=== PATIENT | male | born 1970 | race American Indian/Alaskan Native ===

== ENCOUNTER 2016-11-24 21:23 | Emergency (ER) | payer SELFPAY ==
[2016-11-24] MEDS ORDERED: ASPIRIN PO ONE (22:35)
[2016-11-24] MEDS ORDERED: NACL 0.9% 1000 ML 1,000 ML IV ONE (22:35)
--- NOTE | 2016-11-24 22:35 | Emergency Department Report ---
ED General Adult HPI - General Stated complaint: WEAKNESS Time Seen by Provider: 11/24/16 22:28 - History of Present Illness Initial comments: This is a 46-year-old gentleman who reports overdosing on cocaine today. He states that he had cocaine last night as well again this morning. When he came to the realized he had overdosed. He states that he has pain in his chest all over his body. He reports long-standing history of cocaine abuse. No vomiting or diarrhea is reported no abdominal pains reported no headache. He has not taken anything for his pain. He denies any specific medical problems that he is aware of. He does not take any medications on a chronic basis - Related Data Home Medications Medication Instructions Recorded Confirmed Last Taken No Known Home Medications [No 11/20/14 11/20/14 Unknown Reported Home Medications] Allergies Allergy/AdvReac Type Severity Reaction Status Date / Time No Known Allergies Allergy Verified 11/20/14 06:26 ED Review of Systems ROS: Stated complaint: WEAKNESS Other details as noted in HPI Comment: All other systems reviewed and negative Constitutional: weakness (generalized). denies: chills, fever Eyes: denies: eye pain, eye discharge, vision change ENT: denies: ear pain, throat pain Respiratory: denies: cough, shortness of breath, wheezing Cardiovascular: chest pain. denies: palpitations Endocrine: no symptoms reported Gastrointestinal: denies: abdominal pain, nausea, diarrhea Genitourinary: denies: urgency, dysuria Musculoskeletal: arthralgia. denies: back pain, joint swelling Skin: denies: rash, lesions Neurological: denies: headache, weakness, paresthesias Psychiatric: denies: anxiety, depression Hematological/Lymphatic: denies: easy bleeding, easy bruising ED Past Medical Hx - Past Medical History Previous Medical History?: No Additional medical history: Cocaine use - Surgical History Past Surgical History?: No Additional Surgical History: L hip ortho "Pins" - Social History Smoking Status: Unknown if ever smoked - Medications Home Medications: Home Medications Medication Instructions Recorded Confirmed Last Taken Type No Known Home Medications [No 11/20/14 11/20/14 Unknown History Reported Home Medications] ED Physical Exam - General General appearance: alert, in no apparent distress - Head Head exam: Present: atraumatic, normocephalic - Eye Eye exam: Present: normal appearance, EOMI. Absent: scleral icterus - ENT ENT exam: Present: normal exam, normal orophraynx, mucous membranes moist - Neck Neck exam: Present: normal inspection, full ROM. Absent: meningismus, lymphadenopathy - Respiratory Respiratory exam: Present: normal lung sounds bilaterally. Absent: respiratory distress, wheezes - Cardiovascular Cardiovascular Exam: Present: regular rate, normal rhythm, other (mild tenderness of the chest wall as well as the shoulder girdle region. No lesions or abrasions or ecchymosis is noted.). Absent: systolic murmur, diastolic murmur, rubs, gallop - GI/Abdominal GI/Abdominal exam: Present: soft, normal bowel sounds. Absent: distended, tenderness - Rectal Rectal exam: Present: deferred - Extremities Exam Extremities exam: Present: normal inspection. Absent: tenderness, pedal edema - Back Exam Back exam: Present: normal inspection, full ROM. Absent: CVA tenderness (R), CVA tenderness (L) - Neurological Exam Neurological exam: Present: alert, oriented X3, other (moving all 4 extremities appropriately. No obvious lesions or abrasions are noted.) - Psychiatric Psychiatric exam: Present: normal affect, normal mood - Skin Skin exam: Present: warm, dry, intact, normal color. Absent: rash ED Course Vital Signs 11/24/16 11/24/16 11/25/16 22:26 22:31 02:05 Temperature 97.7 F 97.7 F 98 F Pulse Rate 86 84 88 Respiratory 18 18 Rate Blood Pressure 122/92 Blood Pressure 122/92 105/79 [Left] O2 Sat by Pulse 96 100 Oximetry - Reevaluation(s) Reevaluation #1: 11/24/16 23:08 ECG at 2300 with normal sinus rhythm at 83 bpm with a normal WA and QRS. No acute ST segment elevation or depression appreciated. Reevaluation #2: 11/25/16 02:16 The patient has been sleeping throughout his evaluation here. He is easily arousable. He still does endorse some mild chest discomfort. Pushing on his chest does reproduce some of his pains. Push L over his body reproduces some of his pains as well. I have repeated enzymes 2. Initial enzyme I would give it a 6 hour test. With the next of the 10 hour. I feel the patient has been adequately observed post cocaine for rule out ACS. I have a very low suspicion of this. The CT does not show acute injury pattern. Patient was strictly cautioned regarding substances of abuse. He does endorse understanding than reckless behavior and dangers that this may cause. Will discharge to home at this time. ED Medical Decision Making - Lab Data Result diagrams: 11/24/16 22:40 11/24/16 22:40 - Radiology Data interpreted by me: negative Critical care attestation.: If time is entered above; I have spent that time in minutes in the direct care of this critically ill patient, excluding procedure time. ED Disposition Clinical Impression: Cocaine overdose Qualifiers: Encounter type: initial encounter Injury intent: accidental or unintentional Qualified Code(s): T40.5X1A - Poisoning by cocaine, accidental (unintentional), initial encounter Chest pain Qualifiers: Chest pain type: unspecified Qualified Code(s): R07.9 - Chest pain, unspecified Disposition: DISCHARGED TO HOME OR SELFCARE Is pt being admited?: No Does the pt Need Aspirin: No Condition: Stable Instructions: Chest Pain (ED) Additional Instructions: Stop using cocaine. It will one-day kill you. It is very harmful to your heart. Take Tylenol as needed for pains. Stay well hydrated. Referrals: PRIMARY CARE, [Primary Care Provider] - 3-5 Days Time of Disposition: 02:18
[2016-11-24 23:21] LABS: BUN/Creatinine Ratio 11.11; Blood Urea Nitrogen 10 mg/dL (9-20); Calcium 8.3 mg/dL (8.4-10.2); Carbon Dioxide 21 mmol/L (22-30); Glucose 79 mg/dL (75-100)
[2016-11-24 23:22] LABS: Alanine Aminotransferase 32 units/L (7-56); Albumin 3.8 g/dL (3.9-5); Albumin/Globulin Ratio 1.1 %; Alkaline Phosphatase 68 units/L (35-129); Anion Gap 22 mmol/L; Bilirubin,Total 0.5 mg/dL (0.1-1.2); Chloride 99.3 mmol/L (98-107); Sodium 138 mmol/L (137-145); Total Protein 7.3 g/dL (6.3-8.2)
[2016-11-24 23:33] LABS: Basophils % (Auto) 0.4 % (0.0-1.8); Eosinophils % (Auto) 0.6 % (0.0-4.3); Hematocrit 37.2 % (35.5-45.6); Hemoglobin 12.8 gm/dl (11.8-15.2); Mean Corpuscular HGB Conc 35 % (32-34); Mean Corpuscular Hemoglobin 33 pg (28-32); Mean Corpuscular Volume 96 fl (84-94); Platelet Count 268 K/mm3 (140-440); Red Blood Count 3.89 M/mm3 (3.65-5.03); Red Cell Distribution Width 12.7 % (13.2-15.2); White Blood Count 4.2 K/mm3 (4.5-11.0)
[2016-11-25 03:11] VITALS: BP 107/55
--- NOTE | 2016-11-25 09:01 | XRay Report ---
PORTABLE CHEST: Chest pain An AP portable view of the chest demonstrates a normal cardiac contour considering the limits of this technique. The lungs are clear with no evidence of infiltrate, fluid or failure. IMPRESSION: Normal portable chest.
== END 2016-11-25 03:12 | disposition home or self-care (01) ==
LOC: ED 21:23
DX: T40.5X1A Poisoning by cocaine, accidental (unintentional), initial encounter (principal); R07.9 Chest pain, unspecified; Y92.89 Other specified places as the place of occurrence of the external cause
CPT/HCPCS: 36415; 71010; 80053; 84484; 85025; 93005; 93010; 96360; 99285; J7030

== ENCOUNTER 2016-12-31 21:20 | Observation (INO) | payer SELFPAY ==
[2016-12-31 22:30] LABS: BUN/Creatinine Ratio 11.11; Blood Urea Nitrogen 10 mg/dL (9-20); Calcium 8.8 mg/dL (8.4-10.2); Carbon Dioxide 22 mmol/L (22-30); Glucose 91 mg/dL (75-100)
[2016-12-31 22:31] LABS: Anion Gap 21 mmol/L; Chloride 100.9 mmol/L (98-107); Potassium 4.1 mmol/L (3.6-5.0); Sodium 140 mmol/L (137-145)
[2016-12-31 22:45] LABS: Hematocrit 40.6 % (35.5-45.6); Hemoglobin 13.3 gm/dl (11.8-15.2); Mean Corpuscular HGB Conc 33 % (32-34); Mean Corpuscular Hemoglobin 32 pg (28-32); Mean Corpuscular Volume 99 fl (84-94); Platelet Count 183 K/mm3 (140-440); Red Blood Count 4.12 M/mm3 (3.65-5.03); Red Cell Distribution Width 12.5 % (13.2-15.2); White Blood Count 3.4 K/mm3 (4.5-11.0)
[2016-12-31 23:15] LABS: Blastocytes % (Manual) 0 %; Eosinophils % (Manual) 0 % (0.0-4.3)
[2016-12-31 23:16] LABS: Diff Status Complete; Platelet Estimate Consistent w Auto; RBC Morphology Normal
[2017-01-01] MEDS ORDERED: TORADOL IV ONE (06:34)
[2017-01-01] MEDS ORDERED: BABY ASPIRIN PO ONE (06:34)
--- NOTE | 2017-01-01 06:38 | Emergency Department Report ---
ED Chest Pain HPI - General Chief Complaint: Chest Pain Stated Complaint: DIZZINESS/CHEST PAIN Time Seen by Provider: 01/01/17 06:12 Source: patient Mode of arrival: Ambulatory Limitations: No Limitations - History of Present Illness Initial Comments: 46-year-old -[place] male who presents to the emergency department with complaint of midsternal nonradiating chest pain has been going on since late last evening and has continued since. He says that it is keeping him from getting any sleep. He denies any shortness of breath. He had some nausea and vomiting and diaphoresis earlier but that has since resolved. He has a history of cocaine abuse but says he last used it about one week ago. He has not taken anything for symptoms prior to presentation. It is currently 7 out of 10 in intensity. There are no known aggravating or alleviating factors. He denies any other past medical history. He does not have a primary care doctor. No recent travel or sick contacts at home. He denies tobacco abuse or any current alcohol use. Severity scale (0 -10): 6 - Related Data Home Medications Medication Instructions Recorded Confirmed Last Taken No Known Home Medications [No 11/20/14 11/20/14 Unknown Reported Home Medications] Allergies Allergy/AdvReac Type Severity Reaction Status Date / Time No Known Allergies Allergy Verified 11/20/14 06:26 MARIE score - Marie Score Age > 65: (0) No Aspirin use within the Past 7 Days: (0) No 3 or more CAD Risk Factors: (0) No 2 or more Angina events in past 24 hrs: (1) Yes Known CAD with more than 50% Stenosis: (0) No Elevated Cardiac Markers: (0) No ST Deviation Greater than 0.5mm: (0) No MARIE Score: 1 ED Review of Systems ROS: Stated complaint: DIZZINESS/CHEST PAIN Other details as noted in HPI Comment: All other systems reviewed and negative Constitutional: denies: chills, fever Eyes: denies: eye pain, eye discharge, vision change ENT: denies: ear pain, throat pain Respiratory: denies: cough, shortness of breath, wheezing Cardiovascular: chest pain. denies: palpitations Gastrointestinal: nausea, vomiting Genitourinary: denies: urgency, dysuria Musculoskeletal: denies: back pain, joint swelling, arthralgia Skin: denies: rash, lesions Neurological: denies: headache, weakness, paresthesias ED Past Medical Hx - Past Medical History Previous Medical History?: Yes Additional medical history: Cocaine use - Surgical History Past Surgical History?: Yes Additional Surgical History: L hip ortho "Pins" - Social History Smoking Status: Never Smoker Substance Use Type: Alcohol, Cocaine, Marijuana - Medications Home Medications: Home Medications Medication Instructions Recorded Confirmed Last Taken Type No Known Home Medications [No 11/20/14 11/20/14 Unknown History Reported Home Medications] ED Physical Exam - General Limitations: No Limitations - Other Other exam information: GENERAL: The patient is well-developed well-nourished. HEENT: Normocephalic. Atraumatic. Extraocular motions are intact. Patient has moist mucous membranes. Pupils equal reactive to light bilaterally. NECK: Supple. Trachea is midline. CHEST/LUNGS: Clear to auscultation. There is no respiratory distress noted. Midsternal chest pain is reproducible to palpation of the chest wall. HEART/CARDIOVASCULAR: Regular. There is no tachycardia. There is no gallop rub or murmur. ABDOMEN: Abdomen is soft, nontender. Patient has normal bowel sounds. There is no abdominal distention. SKIN: Skin is warm and dry. NEURO: The patient is awake, alert, and oriented. The patient is cooperative. The patient has no focal neurologic deficits. The patient has normal speech. MUSCULOSKELETAL: There is no tenderness or deformity. There is no limitation range of motion. There is no evidence of acute injury. ED Course Vital Signs 12/31/16 01/01/17 01/01/17 21:47 02:01 06:33 Temperature 98.1 F 97.6 F Pulse Rate 87 89 77 Respiratory 18 18 16 Rate Blood Pressure 179/88 124/90 Blood Pressure 138/94 [Left] O2 Sat by Pulse 100 99 99 Oximetry O2 Sat by Pulse Oximetry [ Digit-Finger] 01/01/17 06:40 Temperature Pulse Rate Respiratory Rate Blood Pressure Blood Pressure [Left] O2 Sat by Pulse Oximetry O2 Sat by Pulse 100 Oximetry [ Digit-Finger] - Pulse Oximetry Interpretation Digit-Finger Initial Pulse Oximetry Readin O2 Sat by Pulse Oximetry: 100 Actions Taken: none ED Medical Decision Making - Lab Data Result diagrams: 12/31/16 21:59 12/31/16 21:59 - EKG Data -: EKG Interpreted by [place] EKG shows normal: sinus rhythm, axis, intervals, QRS complexes, ST-T waves Rate: normal - EKG Data When compared to previous EKG there are: no significant change Interpretation: unchanged when compared t (11/24/16) - Radiology Data Radiology results: image reviewed interpreted by me: Chest x-ray did not show any acute process. Heart is normal shape and size. No effusions. No pneumothorax. No signs of pneumonia seen. - Medical Decision Making 46-year-old male presents to emergency department with midsternal chest pain since late last night. There is at least a component of costochondritis as some of the pain is reproducible to palpation. However the patient has a history of cocaine-induced chest pain and this time he says he has not done any cocaine for over a week but still continues to have chest discomfort. His EKG does not show any signs of ST elevation ND or dysrhythmia. Chest x-ray does not show any acute process. He has had negative troponins 2 this far. However this is the second visit in the past 2 months for chest pain and he has not had a full cardiac evaluation so my plan is for admission for serial troponins, continued monitoring and possible cardio consultation versus stress test. Patient has been accepted by the service of Dr. Lu and the information has been obtained by the nurse practitioner. - Differential Diagnosis ND, Costochondritis, Pneumonia, GERD Critical Care Time: No Critical care attestation.: If time is entered above; I have spent that time in minutes in the direct care of this critically ill patient, excluding procedure time. ED Disposition Clinical Impression: Chest pain Qualifiers: Chest pain type: unspecified Qualified Code(s): R07.9 - Chest pain, unspecified Disposition: OP ADMITTED IP TO THIS HOSP Is pt being admited?: Yes Condition: Stable Instructions: Chest Pain (ED) Referrals: PRIMARY CARE, [Primary Care Provider] - 3-5 Days Time of Disposition: 07:29
--- NOTE | 2017-01-01 07:34 | Admit Criteria Form ---
Admission Criteria Documentation: CARDIOLOGY GRG Clinical Indications for Admission to Inpatient Care ( Place 'X' for any and all applicable criteria): Hospital admission is needed for appropriate care of the patient because of ANY ONE of the following (1): [ ] I. Hemodynamic instability as indicated by ALL of the following (1)(2)(3) (4)(5) [ ]a) Vital signs or other findings not as expected for chronic patient condition or baseline [ ]b) Instability indicated by ANY ONE of the following: [ ]i) Hypotension [ ]ii) Symptomatic Tachycardia unresponsive to treatment ( e.g., analgesia, fluids, sedation as indicated) [ ]iii) Inadequate perfusion indicated by ANY ONE of the following: [ ] 1) Lactic acidosis (> 2 mmol/L) [ ] 2) New abnormal capillary refill (> 3 seconds) [ ] 3) Reduced urine output [ ] 4) New altered mental status [ ]iv) Orthostatic vital sign changes unresponsive to treatment (e.g., fluids) [ ]v) IV inotropic or vasopressor medication required to maintain adequate blood pressure or perfusion [ ] II. Severe heart failure as indicated by ANY ONE of the following(17)(18) [ ]a) Respiratory distress [ ]b) Hypotension [ ]c) Anasarca (refractory to outpatient therapy) [ ]d) Cardiac arrhythmias of immediate concern [ ]e) Myocardial ischemia [ ] III. Cardiac arrhythmias or findings of immediate concern indicated by ANY ONE of the following (19)(20): [ ] a) Heart rhythms that are inherently dangerous or unstable indicated by ANY ONE of the following (21)(22)(23): [ ] i) Resuscitated ventricular fibrillation or cardiac arrest [ ] ii) Ventricular escape rhythm [ ] iii) Sustained ventricular tachycardia (30 seconds or more of ventricular rhythm at greater than 100 beats per minute) [ ] iv) Nonsustained ventricular tachycardia and ANY ONE of the following: [ ] 1) Suspected cardiac ischemia as cause or consequence of ventricular tachycardia [ ] 2) In setting of acute myocarditis [ ] b) Unstable cardiac conduction defects indicated by ANY ONE of the following(23)(24)(25) [ ] i) Type II second-degree atrioventricular block [ ]ii) Third-degree atrioventricular block [ ]iii) New-onset left bundle branch block with suspected myocardial ischemia [ ]c) Any heart rhythm and ANY ONE of the following (21)(22)(26)(27) (28) [ ] i) Continuous long-term ECG monitoring needed (e.g., initiation of drug requiring monitoring for more than 24 hours) [ ] ii) Patient has automatic implanted cardioverter defibrillator that is repeatedly firing, malfunctioning, or in need of immediate adjustment of settings beyond the scope of ambulatory or observation care [ ]d) Heart rhythms of concern due to ANY ONE of the following: [ ] i) Hypotension [ ] ii) Respiratory distress [ ] iii) Association with other significant symptoms (e.g., bradycardia with syncope or ongoing dizziness, supraventricular tachycardia with chest pain (14)(15)(17) [ ] IV. Monitoring for cardiac contusion beyond the scope of observation care needed [A](30)(31)(32) [ ] V. Surgical or device complication (e.g., valve replacement complication , pacemaker dysfunction) (35)(41)(44)(45)(46) [ ] . Inpatient palliative care needed. [B](49) Also use Inpatient Palliative Care Criteria [ ] VII. Nonbacterial thrombotic (marantic) endocarditis (36)(43)(47)(48) [X ] VIII. Cardiology condition, symptom, or finding for which emergency and observation care has failed or are not considered appropriate. [ ] IX. Acute valvular disease requiring inpatient as indicated by ANY ONE of the following (41) [ ]a) Acute valvular regurgitation (42) [ ]b) Noninfectious valvulitis (43) [ ]c) Obstructive valve thrombosis [ ]d) Paravalvular leak [ ]e) Other significant valvular disorder remaining after emergency or observation level of care (as appropriate) [ ]X. Pericardial disease requiring inpatient treatment as indicated by ANY ONE of the following (33)(34)(35)(36)(37) [ ]a) Suspected tamponade (38)(39)(40) [ ]b) Hemopericardium [ ]c) Other significant pericardial disorder remaining after emergency or observation level of care (as appropriate) [ ] XI. Cardiac ischemia beyond scope of emergency and observation care. [ ] XII. Hypertension requiring inpatient treatment as indicated by ANY ONE of the following (6)(7)(8) [ ]a) SBP greater than 220 mm Hg or DBP greater than 120 mmHg despite treatment [ ]b) SBP greater than 140 mm Hg or DBP greater than 100 mm Hg with evidence of acute end organ damage as indicated by ANY ONE of the following [ ] i) Altered mental status [ ] ii) Acute renal failure as indicated by new onset of ANY ONE of the following (9)(10)(11)(12)(13) [ ]1) 3-fold rise in serum creatinine from baseline [ ]2) Serum creatinine greater than 4 mg/dL ( 354 micromoles/L) with acute rise greater than 0.5 mg/dL (44.2 micromoles/L) [ ]3) Reduction of more than 75% in estimated glomerular filtration rate from baseline [ ]4) Estimated glomerular filtration rate less than 35 mL/min/1.73m2 (0.59 mL/sec/1.73m2) in child up to 18 years of age [ ]5) Cessation of urine output indicated by ALL of the following [ ]A. Adequate volume status [ ]B. Inadequate urine output as indicated by ANY ONE of the following [ ]a. Urine output less than 0.3 mL/kg/hr for 24 hours [ ]b. Anuria (urine output less than 0.1 mL/kg/hr) for 12 hours [ ] iii) Aortic dissection [ ] iv) Myocardial Ischemia [ ] v) Left ventricular heart failure [ ]vi) Retinal Hemorrhage [ ]vii) Other significant finding [ ]c) Hypertension in child requiring inpatient treatment as indicated by ALL of the following(14)(15)(16) [ ] i) Outpatient treatment not effective, not available, or not appropriate [ ]ii) SBP or DBP greater than 95th percentile for age [ ]iii) Evidence of acute end organ damage as indicated by ANY ONE of the following [ ]1) Altered mental status [ ]2) Acute renal failure as indicated by new onset of ANY ONE of the following(9)(10)(11)(12)(13) [ ]A. 3-fold rise in serum creatinine from baseline [ ]B. Serum creatinine greater than 4 mg/dL (354 micromoles/L) with acute rise greater than 0.5 mg/dL (44.2 micromoles/L) [ ]C. Reduction of more than 75% in estimated glomerular filtration rate from baseline [ ]D. Estimated glomerular filtration rate less than 35 mL/min/1.73m2 (0.59 mL/sec/1.73m2) in child up to 18 years of age [ ]E. Cessation of urine output indicated by ALL of the following [ ]a. Adequate volume status [ ]b. Inadequate urine output as indicated by ANY ONE of the following [ ]i) Urine output less than 0.3 mL/kg/hr for 24 hours [ ]ii) Anuria ( urine output less than 0.1 mL/kg/hr) for 12 hours [ ]3) Severe headache [ ]4) Visual disturbance [ ]5) Retinal hemorrhage [ ]6) Other significant finding [ ]XIII. Complications of transplanted heart indicated by ANY ONE of the following(61): [ ]a) Acute graft rejection requiring inpatient management (eg, intravenous immunosuppression)(62)(63) [ ]b) Acute graft heart failure indicated by ANY ONE of the following(64): [ ]i) Hemodynamic instability [ ]ii) Cardiac arrhythmias of immediate concern [ ]iii) Pulmonary edema that is very severe (eg, mechanical ventilation needed, imminent or likely, need for 100% oxygen to keep oxygen saturation above 90%) [ ]iv) Pulmonary edema that is persistent as indicated by ALL of the following: [ ]1) New need for oxygen therapy to keep oxygen saturation above 90% (or increased FiO2 need from baseline) [ ]2) Has not improved sufficiently with emergency department or observation care IV diuretics or other heart failure treatments[E] [ ]v) Altered mental status that is severe or persistent [ ]vi) Increased creatinine (new on laboratory test) with reduction of more than 50% in estimated glomerular filtration rate from baseline [ ]vii) Progressively (ongoing) rising creatinine (known from past laboratory test) with reduction of more than 25% in estimated glomerular filtration rate from baseline [ ]viii) Acute renal failure [ ]ix) Acute peripheral ischemia (eg, examination shows pulseless, cool, mottled, or cyanotic extremity) [ ]x) Pulmonary artery catheter monitoring needed [ ]xi) Other sign or symptom of heart failure requiring inpatient treatment (ie, too severe or not responsive to outpatient and observation care treatment) [ ]c) Infection requiring inpatient management (eg, Hemodynamic instability, need for intravenous antimicrobial treatment)(66)(67)(68)(69)(70) [ ]d) Cardiac allograft vasculopathy requiring inpatient management ( eg evidence of cardiac ischemia)(71) [ ]e) Other complication of transplanted heart (eg, stroke, severe pulmonary hypertension, severe valvular dysfunction) requiring inpatient management(72) The original [facility] [employer] content created by [facility] has been revised. The portions of the content which have been revised are identified through the use of italic text or in bold, and [facility] has neither reviewed nor approved the modified material. All other unmodified content is copyright [facility] [employer]. Please see references footnoted in the original [facility] [employer] edition 2016 Admission Criteria Met: Yes
--- NOTE | 2017-01-01 08:10 | XRay Report ---
AP CHEST : 01/01/17 CLINICAL: Chest pain. COMPARISON:11/24/16 FINDINGS: Normal heart and pulmonary vessels. The lungs are normally expanded and clear. The bones and soft tissues are unremarkable. IMPRESSION: Normal chest.
--- NOTE | 2017-01-01 08:17 | Consultation ---
Medications and Allergies Allergies Allergy/AdvReac Type Severity Reaction Status Date / Time No Known Allergies Allergy Verified 11/20/14 06:26 Home Medications Medication Instructions Recorded Confirmed Last Taken Type No Known Home Medications [No 11/20/14 11/20/14 Unknown History Reported Home Medications] Exam - Constitutional Vitals: Temp Pulse Resp BP Pulse Ox 97.6 F 77 16 138/94 100 01/01/17 02:01 01/01/17 06:33 01/01/17 06:33 01/01/17 06:33 01/01/17 07:29 Results - Labs CBC & Chem 7: 12/31/16 21:59 12/31/16 21:59 Labs: Abnormal lab results 12/31/16 Range/Units 21:59 WBC 3.4 L (4.5-11.0) K/mm3 MCV 99 H (84-94) fl RDW 12.5 L (13.2-15.2) % Seg Neuts % (Manual) 39.0 L (40.0-70.0) % Lymphocytes % (Manual) 46.0 H (13.4-35.0) % Monocytes % (Manual) 14.0 H (0.0-7.3) % Seg Neutrophils # Man 1.3 L (1.8-7.7) K/mm3
--- NOTE | 2017-01-01 08:28 | History and Physical Report ---
History of Present Illness Date of examination: 01/01/17 Date of admission: 01/01/17 Chief complaint: 01/01/17 History of present illness: 46-year-old male presented to the ED with chest pain. Patient verbalized chest pain started yesterday, 12/31/16, while he was resting. Pt complain of localized chest pain 7 out of 10. Patient denies fever, chills, nausea, vomiting. Patient also denies smoking, hypertension, diabetes and CAD. Patient verbalized cocaine use and left hip surgery a long time ago. Past History Past Medical History: No medical history, other (Chest pain) Past Surgical History: Other (Left Hip Surgery (year unknown)) Social history: single, Lives alone, alcohol abuse ([employer]), other ( Cocaine Abuse) Family history: no significant family history (Pt denies family Hx of heart disease), other Medications and Allergies Allergies Allergy/AdvReac Type Severity Reaction Status Date / Time No Known Allergies Allergy Verified 11/20/14 06:26 Home Medications Medication Instructions Recorded Confirmed Last Taken Type Aspirin EC [Aspirin Enteric Coated 81 mg PO QDAY #30 tablet. 01/01/17 Unknown Rx TAB] Review of Systems Constitutional: fatigue, no fever, no chills Ears, nose, mouth and throat: deferred Cardiovascular: chest pain Respiratory: no cough Gastrointestinal: no nausea, no vomiting, no diarrhea, no constipation Genitourinary Male: no dysuria Rectal: no pain Musculoskeletal: no neck stiffness, no neck pain, no arm numbness/tingling, no leg numbness/tingling Integumentary: no rash, no wounds Neurological: no head injury, no syncope, no headaches Psychiatric: no anxiety Endocrine: no high blood sugars, no low blood sugars Exam - Constitutional Vitals: Temp Pulse Resp BP Pulse Ox 97.6 F 77 16 138/94 100 01/01/17 02:01 01/01/17 06:33 01/01/17 06:33 01/01/17 06:33 01/01/17 07:29 General appearance: Present: no acute distress, other (Sleepy but easily arousable) - EENT Eyes: Present: PERRL ENT: hearing intact - Neck Neck: Present: normal ROM - Respiratory Respiratory effort: normal - Cardiovascular Heart Sounds: Present: S1 & S2. Absent: systolic murmur, diastolic murmur - Extremities Extremities: No edema, Full ROM Peripheral Pulses: within normal limits - Abdominal General gastrointestinal: Present: soft, non-tender, normal bowel sounds Male genitourinary: Present: deferred - Rectal Rectal Exam: deferred - Integumentary Integumentary: Present: warm, dry - Musculoskeletal Musculoskeletal: strength equal bilaterally - Psychiatric Psychiatric: intact judgment & insight - Neurologic Neurologic: moves all extremities - Allied Health Allied health notes reviewed: nursing Results - Labs CBC & Chem 7: 12/31/16 21:59 12/31/16 21:59 Labs: Laboratory Last Values WBC 3.4 K/mm3 (4.5-11.0) L 12/31/16 21:59 RBC 4.12 M/mm3 (3.65-5.03) 12/31/16 21:59 Hgb 13.3 gm/dl (11.8-15.2) 12/31/16 21:59 Hct 40.6 % (35.5-45.6) 12/31/16 21:59 MCV 99 fl (84-94) H 12/31/16 21:59 MCH 32 pg (28-32) 12/31/16 21:59 MCHC 33 % (32-34) 12/31/16 21:59 RDW 12.5 % (13.2-15.2) L 12/31/16 21:59 Plt Count 183 K/mm3 (140-440) 12/31/16 21:59 Add Manual Diff Complete 12/31/16 21:59 Total Counted 100 12/31/16 21:59 Seg Neutrophils % Leasing Consultant 12/31/16 21:59 Seg Neuts % (Manual) 39.0 % (40.0-70.0) L 12/31/16 21:59 Band Neutrophils % 0 % 12/31/16 21:59 Lymphocytes % (Manual) 46.0 % (13.4-35.0) H 12/31/16 21:59 Reactive Lymphs % (Man) 0 % 12/31/16 21:59 Monocytes % (Manual) 14.0 % (0.0-7.3) H 12/31/16 21:59 Eosinophils % (Manual) 0 % (0.0-4.3) 12/31/16 21:59 Basophils % (Manual) 1.0 % (0.0-1.8) 12/31/16 21:59 Metamyelocytes % 0 % 12/31/16 21:59 Myelocytes % 0 % 12/31/16 21:59 Promyelocytes % 0 % 12/31/16 21:59 Blast Cells % 0 % 12/31/16 21:59 Nucleated RBC % Not Reportable 12/31/16 21:59 Seg Neutrophils # Man 1.3 K/mm3 (1.8-7.7) L 12/31/16 21:59 Band Neutrophils # 0.0 K/mm3 12/31/16 21:59 Lymphocytes # (Manual) 1.6 K/mm3 (1.2-5.4) 12/31/16 21:59 Abs React Lymphs (Man) 0.0 K/mm3 12/31/16 21:59 Monocytes # (Manual) 0.5 K/mm3 (0.0-0.8) 12/31/16 21:59 Eosinophils # (Manual) 0.0 K/mm3 (0.0-0.4) 12/31/16 21:59 Basophils # (Manual) 0.0 K/mm3 (0.0-0.1) 12/31/16 21:59 Metamyelocytes # 0.0 K/mm3 12/31/16 21:59 Myelocytes # 0.0 K/mm3 12/31/16 21:59 Promyelocytes # 0.0 K/mm3 12/31/16 21:59 Blast Cells # 0.0 K/mm3 12/31/16 21:59 WBC Morphology Not Reportable 12/31/16 21:59 Hypersegmented Neuts Not Reportable 12/31/16 21:59 Hyposegmented Neuts Not Reportable 12/31/16 21:59 Hypogranular Neuts Not Reportable 12/31/16 21:59 Smudge Cells Not Reportable 12/31/16 21:59 Toxic Granulation Not Reportable 12/31/16 21:59 Toxic Vacuolation Not Reportable 12/31/16 21:59 Dohle Bodies Not Reportable 12/31/16 21:59 Pelger-Huet Anomaly Not Reportable 12/31/16 21:59 Rere Rods Not Reportable 12/31/16 21:59 Platelet Estimate Consistent w auto 12/31/16 21:59 Clumped Platelets Not Reportable 12/31/16 21:59 Plt Clumps, EDTA Not Reportable 12/31/16 21:59 Large Platelets Not Reportable 12/31/16 21:59 Giant Platelets Not Reportable 12/31/16 21:59 Platelet Satelliting Not Reportable 12/31/16 21:59 Plt Morphology Comment Not Reportable 12/31/16 21:59 RBC Morphology Normal 12/31/16 21:59 Dimorphic RBCs Not Reportable 12/31/16 21:59 Polychromasia Not Reportable 12/31/16 21:59 Hypochromasia Not Reportable 12/31/16 21:59 Poikilocytosis Not Reportable 12/31/16 21:59 Anisocytosis Not Reportable 12/31/16 21:59 Microcytosis Not Reportable 12/31/16 21:59 Macrocytosis Not Reportable 12/31/16 21:59 Spherocytes Not Reportable 12/31/16 21:59 Pappenheimer Bodies Not Reportable 12/31/16 21:59 Sickle Cells Not Reportable 12/31/16 21:59 Target Cells Not Reportable 12/31/16 21:59 Tear Drop Cells Not Reportable 12/31/16 21:59 Ovalocytes Not Reportable 12/31/16 21:59 Helmet Cells Not Reportable 12/31/16 21:59 [employer] Bodies Not Reportable 12/31/16 21:59 Draper Rings Not Reportable 12/31/16 21:59 Mery Cells Not Reportable 12/31/16 21:59 Bite Cells Not Reportable 12/31/16 21:59 Crenated Cell Not Reportable 12/31/16 21:59 Elliptocytes Not Reportable 12/31/16 21:59 Acanthocytes (Spur) Not Reportable 12/31/16 21:59 Rouleaux Not Reportable 12/31/16 21:59 Hemoglobin C Crystals Not Reportable 12/31/16 21:59 Schistocytes Not Reportable 12/31/16 21:59 Malaria parasites Not Reportable 12/31/16 21:59 Gopi Bodies Not Reportable 12/31/16 21:59 Hem Pathologist Commnt No 12/31/16 21:59 Sodium 140 mmol/L (137-145) 12/31/16 21:59 Potassium 4.1 mmol/L (3.6-5.0) 12/31/16 21:59 Chloride 100.9 mmol/L (98-107) 12/31/16 21:59 Carbon Dioxide 22 mmol/L (22-30) 12/31/16 21:59 Anion Gap 21 mmol/L 12/31/16 21:59 BUN 10 mg/dL (9-20) 12/31/16 21:59 Creatinine 0.9 mg/dL (0.8-1.5) 12/31/16 21:59 Estimated GFR > 60 ml/min 12/31/16 21:59 BUN/Creatinine Ratio 11.11 % 12/31/16 21:59 Glucose 91 mg/dL (75-100) 12/31/16 21:59 Calcium 8.8 mg/dL (8.4-10.2) 12/31/16 21:59 Troponin T < 0.010 ng/mL (0.00-0.029) 01/01/17 06:09 - Imaging and Cardiology EKG: report reviewed (EKG NSR, HR 80) Assessment and Plan Assessment and plan: 46-year-old male presented to the ED with chest pain. Patient verbalized chest pain started yesterday, 12/31/16, while he was resting. Pt complain of localized chest pain 7 out of 10. Patient denies fever, chills, nausea, vomiting. Patient also denies smoking, hypertension, diabetes and CAD. Patient verbalized cocaine use and left hip surgery a long time ago. On exam, patient alert and oriented 3, sleepy but easily arousable, S1S2 noted, no murmurs noted and B/L clear lung sounds. Problem: Chest pain - Pending Stress Test Follow up: Troponin series negative, EKG normal sinus rhythm, patient refused stress test and was advised to follow up with PCP. Patient was counseled on cocaine abuse. Patient's chest pain was most likely due to costochondritis and recommended to take tylenol over the counter. Advance Directives: No (Full Code) VTE prophylaxis?: Mechanical Contraindication Mechanical VTE Prophylaxis: Treatment Not Indicated Plan of care discussed with patient/family: Yes
[2017-01-01 09:03] LABS: Urine Drugs of Abuse Note Disclamer
[2017-01-01 09:15] LABS: Bilirubin,Urine NEG (Negative); Blood,Urine NEG (Negative); Ketones,Urine NEG (Negative); Leukocyte Esterase,Urine NEG (Negative); Mucus,Urine FEW /HPF; Nitrite,Urine NEG (Negative); Protein,Urine <15 mg/dL mg/dL (Negative); Urobilinogen,Urine < 2.0 mg/dL (<2.0); WBC,Urine < 1.0 /HPF (0.0-6.0)
[2017-01-01 11:09] VITALS: BP 132/88
== END 2017-01-01 11:45 | disposition home or self-care (01) ==
LOC: ED 21:20 → 4A 01-01 08:17
PROVIDERS: ADMIT Internal Medicine; ATTEND Internal Medicine
DX: R07.9 Chest pain, unspecified (principal); Z98.890 Other specified postprocedural states
CPT/HCPCS: 36415; 71010; 80048; 80307; 81001; 84484; 85007; 85025; 93005; 93010; 96374; 99285; G0378; J1885

== ENCOUNTER 2017-08-09 00:33 | Emergency (ER) | payer OTHER ==
[2017-08-09 02:19] VITALS: BP 112/78
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
[2017-08-09] MEDS ORDERED: MOTRIN PO ONE (09:22)
== END 2017-08-09 10:23 | disposition home or self-care (01) ==
LOC: ED 00:33
DX: M79.632 Pain in left forearm (principal); M79.642 Pain in left hand; F12.10 Cannabis abuse, uncomplicated; Z79.82 Long term (current) use of aspirin; W05.1XXA Fall from non-moving nonmotorized scooter, initial encounter; Y93.89 Activity, other specified; Y99.8 Other external cause status; Y92.488 Other paved roadways as the place of occurrence of the external cause
CPT/HCPCS: 99283

== ENCOUNTER 2018-10-04 20:12 | Emergency (ER) | payer SELFPAY ==
--- NOTE | 2018-10-04 20:21 | Emergency Department Report ---
HPI - General Time Seen by Provider: 10/04/18 20:17 - HPI HPI: 48-year-old -[place] male presents to the emergency department via EMS with complaint of alcohol intoxication and generalized body pains. More specifically, the patient complains of some abdominal pain and back pain around "my kidneys." He says that he is urinating incessantly. Patient does have a history of alcohol abuse and says that he was drinking all day today. He allegedly has a past medical history of hypertension, diabetes and some history of kidney dysfunction. He has not dialysis dependent. He does not have a primary care physician. He did not take anything for his symptoms prior to pr esentation. ED Past Medical Hx - Past Medical History Additional medical history: Cocaine use - Surgical History Additional Surgical History: L hip ortho "Pins" - Social History Smoking Status: Never Smoker Substance Use Type: Alcohol - Medications Home Medications: Home Medications Medication Instructions Recorded Confirmed Last Taken Type RX: Aspirin EC [Aspirin Enteric 81 mg PO QDAY #30 tablet. 01/01/17 Unknown Rx Coated TAB] Ibuprofen [Motrin] 600 mg PO Q8H PRN #30 tablet 08/09/17 Unknown Rx ED Review of Systems ROS: Stated complaint: ETOH Other details as noted in HPI Comment: All other systems reviewed and negative Constitutional: denies: chills, fever Eyes: denies: eye pain, vision change ENT: denies: ear pain, throat pain Respiratory: denies: cough, shortness of breath Cardiovascular: denies: chest pain, palpitations Gastrointestinal: abdominal pain. denies: vomiting Genitourinary: urgency, frequency Musculoskeletal: back pain, myalgia Skin: denies: rash, change in color Neurological: denies: headache, numbness Physical Exam - Physical Exam Physical Exam: GENERAL: The patient is well-developed well-nourished. HEENT: Normocephalic. Atraumatic. Patient has moist mucous membranes. EYES: Extraocular motions are intact. Pupils are equal and reactive to light bilaterally. NECK: Supple. Trachea is midline. CHEST/LUNGS: Clear to auscultation. There is no respiratory distress noted. HEART/CARDIOVASCULAR: Regular. There is no tachycardia. There is no obvious murmur. ABDOMEN: Abdomen is soft, nontender. Patient has normal bowel sounds. There is no abdominal distention. SKIN: Skin is warm and dry. NEURO: The patient is awake, alert, and oriented but he appears intoxicated. The patient has no focal neurologic deficits. MUSCULOSKELETAL: There is no tenderness or deformity. There is no limitation range of motion. There is no evidence of acute injury. Muscle strength 5 out of 5 upper and lower extremities bilaterally. BACK: No midline thoracic or lumbar tenderness to palpation, step-off or deformity. ED Medical Decision Making - Lab Data Result diagrams: 10/04/18 20:24 10/04/18 20:24 - Medical Decision Making This patient presented to the emergency department with alcohol intoxication with a blood alcohol level of 0.38. He had some complaints of generalized abdominal pain and some back pain but he also equated this history of alcohol abuse. Patient was given IV resuscitation and a banana bag. Abdominal x-ray did not show any acute process. His back pain was atraumatic and was both midline and bilateral paraspinal without any step-off or deformity. I did not feel that any imaging was necessary. He denied any problems with bowel or bladder, numbness or paresthesias or any neurological deficits and did not appear to be high suspicion for any of the emergent back condition such as cauda equina, epidural abscess or cord compression syndrome. Vital signs stable throughout his ED course. The patient was watched throughout my entire shift and then was signed out to my colleague. In reviewing the records, the blood alcohol level came down to about 0.11. At this time the patient was awake, alert, stable and sober appearing and was discharged home. The patient walked out on his own accord. He was given discharge instructions that include recommendations to stay away from any further alcohol abuse. He will return to the ER with any worsening of symptoms or any acute distress. Critical Care Time: No Critical care attestation.: If time is entered above; I have spent that time in minutes in the direct care of this critically ill patient, excluding procedure time. ED Disposition Clinical Impression: Alcohol abuse Alcohol intoxication Qualifiers: Complication of substance-induced condition: uncomplicated Qualified Code(s): F10.920 - Alcohol use, unspecified with intoxication, uncomplicated Disposition: DC-01 TO HOME OR SELFCARE Is pt being admited?: No Condition: Stable Instructions: Alcohol Intoxication (ED), Abuse of Alcohol (ED) Additional Instructions: Please follow up with a primary care physician in the next few days. Return to the emergency Department with any worsening of your symptoms or any acute distress. Please try and avoid any further alcohol abuse. Referrals: [facility] [Outside] - 2-3 Days [facility] [Outside] - 2-3 Days Time of Disposition: 06:29
[2018-10-04 20:55] LABS: Basophils % (Auto) 0.8 % (0.0-1.8); Eosinophils % (Auto) 0.1 % (0.0-4.3); Hematocrit 42.2 % (35.5-45.6); Hemoglobin 14.3 gm/dl (11.8-15.2); Lymphocytes # (Auto) 1.9 K/mm3 (1.2-5.4); Lymphocytes % (Auto) 48.9 % (13.4-35.0); Mean Corpuscular HGB Conc 34 % (32-34); Mean Corpuscular Volume 98 fl (84-94); Monocytes # (Auto) 0.4 K/mm3 (0.0-0.8); Monocytes % (Auto) 9.6 % (0.0-7.3); Platelet Count 184 K/mm3 (140-440); Red Blood Count 4.31 M/mm3 (3.65-5.03); Red Cell Distribution Width 12.4 % (13.2-15.2)
[2018-10-04] MEDS ORDERED: VITAMIN B-1 PO ONE (21:00)
[2018-10-04 21:11] LABS: BUN/Creatinine Ratio 8; Blood Urea Nitrogen 6 mg/dL (9-20); Calcium 8.5 mg/dL (8.4-10.2); Hemolysis Index 11
[2018-10-04] MEDS ORDERED: FOLVITE 1 MG, INFUVITE 10 ML in NACL 0.9% 1000 ML 1,000 ML IV ONE (21:19)
[2018-10-04] MEDS ORDERED: NACL 0.9% 1000 ML 1,000 ML IV ONE (21:35)
--- NOTE | 2018-10-04 22:26 | XRay Report ---
FINAL REPORT PROCEDURE: Abdomen. TECHNIQUE: Portable supine and upright views. HISTORY: Abdominal pain. COMPARISON: No prior studies are available for comparison. FINDINGS: The bowel gas pattern is normal. There are no signs of obstruction. The soft tissues are unremarkable . There is internal fixation hardware through the left hip joint. IMPRESSION: No evidence of acute abdominal disease.
[2018-10-04 23:21] LABS: Bilirubin,Urine NEG (Negative); Blood,Urine NEG (Negative); Color,Urine Straw (Yellow); Protein,Urine <15 mg/dL mg/dL (Negative); RBC,Urine < 1.0 /HPF (0.0-6.0); Urobilinogen,Urine < 2.0 mg/dL (<2.0); WBC,Urine < 1.0 /HPF (0.0-6.0)
[2018-10-04 23:33] LABS: Amphetamine Screen,Urine PRESUMPTIVE NEGATIVE; Benzodiazepines Screen,Urine PRESUMPTIVE NEGATIVE; Cannabinoid Screen,Urine PRESUMPTIVE NEGATIVE; Cocaine Screen,Urine PRESUMPTIVE NEGATIVE; Methadone Screen,Urine PRESUMPTIVE NEGATIVE; Opiate Screen,Urine PRESUMPTIVE NEGATIVE
[2018-10-05] MEDS ORDERED: NACL 0.9% 1000 ML 1,000 ML IV ONE (06:29)
[2018-10-05 11:14] VITALS: BP 127/87
== END 2018-10-05 11:17 | disposition home or self-care (01) ==
LOC: ED 20:12
DX: F10.129 Alcohol abuse with intoxication, unspecified (principal); F10.920 Alcohol use, unspecified with intoxication, uncomplicated
CPT/HCPCS: 36415; 74019; 80048; 80307; 81001; 82962; 83690; 85025; 96365; 96366; 99285; G0480; J7030; 80320; 96374

== ENCOUNTER 2018-10-07 20:49 | Inpatient (IN) | payer OTHER ==
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
[2018-10-07 21:41] LABS: Basophils % (Auto) 0.6 % (0.0-1.8); Eosinophils % (Auto) 0.3 % (0.0-4.3); Hematocrit 39.3 % (35.5-45.6); Hemoglobin 13.5 gm/dl (11.8-15.2); Lymphocytes # (Auto) 1.3 K/mm3 (1.2-5.4); Lymphocytes % (Auto) 36.9 % (13.4-35.0); Mean Corpuscular HGB Conc 34 % (32-34); Mean Corpuscular Volume 97 fl (84-94); Monocytes # (Auto) 0.3 K/mm3 (0.0-0.8); Platelet Count 194 K/mm3 (140-440); Red Blood Count 4.06 M/mm3 (3.65-5.03); Red Cell Distribution Width 12.5 % (13.2-15.2)
[2018-10-07 21:50] LABS: INR 0.85 (0.87-1.13)
[2018-10-07 22:04] LABS: BUN/Creatinine Ratio 9; Blood Urea Nitrogen 7 mg/dL (9-20); Calcium 8.8 mg/dL (8.4-10.2)
[2018-10-07 22:05] LABS: Alanine Aminotransferase 39 units/L (7-56); Albumin 4.3 g/dL (3.9-5); Hemolysis Index 7
[2018-10-07 22:59] LABS: Bilirubin,Urine NEG (Negative); Blood,Urine NEG (Negative); Color,Urine Colorless (Yellow); Mucus,Urine FEW /HPF; Protein,Urine <15 mg/dL mg/dL (Negative); Urobilinogen,Urine < 2.0 mg/dL (<2.0); WBC,Urine < 1.0 /HPF (0.0-6.0)
[2018-10-07 23:22] LABS: Amphetamine Screen,Urine PRESUMPTIVE NEGATIVE; Benzodiazepines Screen,Urine PRESUMPTIVE NEGATIVE; Cannabinoid Screen,Urine PRESUMPTIVE NEGATIVE; Methadone Screen,Urine PRESUMPTIVE NEGATIVE; Opiate Screen,Urine PRESUMPTIVE NEGATIVE
[2018-10-07] MEDS ORDERED: FOLVITE 1 MG, INFUVITE 10 ML, MAGNESIUM SULFATE 2 GM in NACL 0.9% 1000 ML 1,000 ML IV ONE (23:23)
[2018-10-07] MEDS ORDERED: ASPIRIN PO ONE (23:24)
[2018-10-07] MEDS ORDERED: MORPHINE IV ONE (23:24)
[2018-10-07] MEDS ORDERED: NITRO-BID 2% TP ONE (23:24)
[2018-10-07] MEDS ORDERED: NACL 0.9% 1000 ML 1,000 ML IV ONE (23:24)
[2018-10-07] MEDS ORDERED: ZOFRAN IV ONE (23:24)
--- NOTE | 2018-10-07 23:31 | Emergency Department Report ---
HPI - General Chief Complaint: Abdominal Pain Time Seen by Provider: 10/07/18 20:56 - HPI HPI: Room 5 The patient is a 48-year-old male presenting with chief complaint of chest pain back pain and weakness. Patient states he's been feeling weak from drinking too much. Patient states for 2-3 weeks he has had intermittent chest pain described as sharp in nature associated with shortness of breath, nausea/vomiting and diaphoresis. Patient also complains of bilateral flank pain for the same time. Patient denies dysuria or hematuria. Patient denies history of fever. The patient currently gets this chest pain score of 9/10. Patient states he's never had a stress test or cardiac catheterization. Patient admits to cocaine use Location: [See above] Duration: [See above] Quality: Sharp Severity:04/26 Modifying factors: [see above] Context: [see above] Mode of transportation: [not driving] ED Past Medical Hx - Past Medical History Hx Hypertension: Yes Hx Diabetes: Yes Hx Renal Disease: Yes Additional medical history: Cocaine use - Surgical History Additional Surgical History: L hip ortho "Pins" - Social History Smoking Status: Never Smoker Substance Use Type: Alcohol, Cocaine - Medications Home Medications: Home Medications Medication Instructions Recorded Confirmed Last Taken Type Aspirin EC [Aspirin Enteric Coated 81 mg PO QDAY #30 tablet. 01/01/17 Unknown Rx TAB] Ibuprofen [Motrin] 600 mg PO Q8H PRN #30 tablet 08/09/17 Unknown Rx ED Review of Systems ROS: Stated complaint: ABD/ETOH Other details as noted in HPI Constitutional: diaphoresis Eyes: denies: eye pain ENT: denies: throat pain Respiratory: shortness of breath Cardiovascular: chest pain Endocrine: no symptoms reported Gastrointestinal: nausea, vomiting Genitourinary: denies: dysuria, hematuria Musculoskeletal: back pain Neurological: denies: headache Physical Exam - Physical Exam Vital Signs: Vital Signs 10/07/18 20:58 Temperature 97.5 F L Pulse Rate 89 Respiratory 20 Rate Blood Pressure 114/98 O2 Sat by Pulse 100 Oximetry Physical Exam: GENERAL: The patient is well-developed well-nourished male sitting on stretcher not appearing to be in acute distress. [] HEENT: Normocephalic. Atraumatic. Extraocular motions are intact. Patient has moist mucous membranes. NECK: Supple. Trachea midline CHEST/LUNGS: Clear to auscultation. There is no respiratory distress noted. HEART/CARDIOVASCULAR: Regular. There is no tachycardia. There is no gallop rub or murmur. ABDOMEN: Abdomen is soft, nontender. Patient has normal bowel sounds. There is no abdominal distention. SKIN: There is no rash. There is no edema. There is no diaphoresis. NEURO: The patient is awake, alert, and oriented. The patient is cooperative. The patient has normal speech MUSCULOSKELETAL: There is no evidence of acute injury. ED Course Vital Signs 10/07/18 20:58 Temperature 97.5 F L Pulse Rate 89 Respiratory 20 Rate Blood Pressure 114/98 O2 Sat by Pulse 100 Oximetry ED Medical Decision Making - Lab Data Result diagrams: 10/07/18 21:11 10/07/18 21:11 Laboratory Tests 10/07/18 10/07/18 10/07/18 21:11 21:11 21:11 WBC 3.4 L RBC 4.06 Hgb 13.5 Hct 39.3 MCV 97 H MCH 33 H MCHC 34 RDW 12.5 L Plt Count 194 Lymph % (Auto) 36.9 H [place] % (Auto) 8.0 H Eos % (Auto) 0.3 Baso % (Auto) 0.6 Lymph # 1.3 [place] # 0.3 Eos # 0.0 Baso # 0.0 Seg Neutrophils % 54.2 Seg Neutrophils # 1.8 PT 12.1 L INR 0.85 L APTT 28.0 Sodium 140 Potassium 4.1 Chloride 101.9 Carbon Dioxide 23 Anion Gap 19 BUN 7 L Creatinine 0.8 Estimated GFR > 60 BUN/Creatinine Ratio 9 Glucose 102 H Calcium 8.8 Magnesium 2.00 Total Bilirubin 0.30 AST 69 H ALT 39 Alkaline Phosphatase 83 Total Creatine Kinase CK-MB (CK-2) CK-MB (CK-2) Rel Index Troponin T Total Protein 7.8 Albumin 4.3 Albumin/Globulin Ratio 1.2 Lipase Urine Color Urine Turbidity Urine pH Ur Specific [place] Urine Protein Urine Glucose (UA) Urine Ketones Urine Blood Urine Nitrite Urine Bilirubin Urine Urobilinogen Ur Leukocyte Esterase Urine WBC (Auto) Urine RBC (Auto) Urine Mucus Urine Opiates Screen Urine Methadone Screen Ur Barbiturates Screen Ur Phencyclidine Scrn Ur Amphetamines Screen U Benzodiazepines Scrn Urine Cocaine Screen U Marijuana (THC) Screen Drugs of Abuse Note Plasma/Serum Alcohol 10/07/18 10/07/18 10/07/18 21:11 21:11 23:19 WBC RBC Hgb Hct MCV MCH MCHC RDW Plt Count Lymph % (Auto) [place] % (Auto) Eos % (Auto) Baso % (Auto) Lymph # [place] # Eos # Baso # Seg Neutrophils % Seg Neutrophils # PT INR APTT Sodium Potassium Chloride Carbon Dioxide Anion Gap BUN Creatinine Estimated GFR BUN/Creatinine Ratio Glucose Calcium Magnesium Total Bilirubin AST ALT Alkaline Phosphatase Total Creatine Kinase 189 H CK-MB (CK-2) 1.4 CK-MB (CK-2) Rel Index 0.7 Troponin T < 0.010 Total Protein Albumin Albumin/Globulin Ratio Lipase 26 Urine Color Urine Turbidity Urine pH Ur Specific [place] Urine Protein Urine Glucose (UA) Urine Ketones Urine Blood Urine Nitrite Urine Bilirubin Urine Urobilinogen Ur Leukocyte Esterase Urine WBC (Auto) Urine RBC (Auto) Urine Mucus Urine Opiates Screen Urine Methadone Screen Ur Barbiturates Screen Ur Phencyclidine Scrn Ur Amphetamines Screen U Benzodiazepines Scrn Urine Cocaine Screen U Marijuana (THC) Screen Drugs of Abuse Note Plasma/Serum Alcohol 0.24 H 10/07/18 10/07/18 Unknown Unknown WBC RBC Hgb Hct MCV MCH MCHC RDW Plt Count Lymph % (Auto) [place] % (Auto) Eos % (Auto) Baso % (Auto) Lymph # [place] # Eos # Baso # Seg Neutrophils % Seg Neutrophils # PT INR APTT Sodium Potassium Chloride Carbon Dioxide Anion Gap BUN Creatinine Estimated GFR BUN/Creatinine Ratio Glucose Calcium Magnesium Total Bilirubin AST ALT Alkaline Phosphatase Total Creatine Kinase CK-MB (CK-2) CK-MB (CK-2) Rel Index Troponin T Total Protein Albumin Albumin/Globulin Ratio Lipase Urine Color Colorless Urine Turbidity Clear Urine pH 6.0 Ur Specific [place] 1.002 L Urine Protein <15 mg/dl Urine Glucose (UA) Neg Urine Ketones Neg Urine Blood Neg Urine Nitrite Neg Urine Bilirubin Neg Urine Urobilinogen < 2.0 Ur Leukocyte Esterase Neg Urine WBC (Auto) < 1.0 Urine RBC (Auto) 1.0 Urine Mucus Few Urine Opiates Screen Presumptive negative Urine Methadone Screen Presumptive negative Ur Barbiturates Screen Presumptive negative Ur Phencyclidine Scrn Presumptive negative Ur Amphetamines Screen Presumptive negative U Benzodiazepines Scrn Presumptive negative Urine Cocaine Screen Presumptive positive U Marijuana (THC) Screen Presumptive negative Drugs of Abuse Note Disclamer Plasma/Serum Alcohol - EKG Data -: EKG Interpreted by Wy EKG shows normal: sinus rhythm Rate: normal - EKG Data When compared to previous EKG there are: no significant change Interpretation: unchanged when compared t (12/31/2016) - Radiology Data Radiology results: image reviewed (chest x-ray) interpreted by me: Chest x-ray-no focal infiltrates, no pneumothorax - Differential Diagnosis ACS, pericarditis, GERD, UTI, pancreatitis Critical care attestation.: If time is entered above; I have spent that time in minutes in the direct care of this critically ill patient, excluding procedure time. ED Disposition Clinical Impression: Chest pain, Alcohol intoxication, Cocaine abuse Disposition: OP ADMIT IP TO THIS HOSP Is pt being admited?: Yes Does the pt Need Aspirin: Yes Condition: Fair Instructions: Chest Pain (ED) Referrals: ELO WARNER [Primary Care Provider] - 3-5 Days Time of Disposition: 00:10 (hospitalist paged (Dr. Rashida Alvarez))
[2018-10-07 23:37] LABS: Cocaine Screen,Urine PRESUMPTIVE POSITIVE
[2018-10-08 00:07] LABS: Creatine Kinase MB 1.4 ng/mL (0.0-4.0)
--- NOTE | 2018-10-08 00:23 | XRay Report ---
FINAL REPORT EXAM: XR CHEST 1V AP HISTORY: chest pain TECHNIQUE: AP portable view of the chest. PRIORS: None. FINDINGS: The cardiomediastinal silhouette appears normal. The lungs are clear. The bones and soft tissues are unremarkable. IMPRESSION: No evidence of acute cardiopulmonary disease.
[2018-10-08] MEDS ORDERED: VITAMIN B-1 PO ONE (00:30)
[2018-10-08] MEDS ORDERED: ZOFRAN IV PRN (01:10)
[2018-10-08] MEDS ORDERED: PERCOCET 5/325 PO PRN (01:10)
[2018-10-08] MEDS ORDERED: TYLENOL PO PRN (01:10)
[2018-10-08] MEDS ORDERED: SODIUM CHLORIDE FLUSH SYRINGE 10 ML IV PRN (01:10)
[2018-10-08] MEDS ORDERED: ATIVAN PO PRN (01:16)
[2018-10-08] MEDS ORDERED: ATIVAN IV PRN ×2 (01:16→15:38)
--- NOTE | 2018-10-08 01:16 | History and Physical Report ---
History of Present Illness Date of examination: 10/08/18 History of present illness: 48-year-old man history of substance abuse comes emergency room with complaints of left flank and mid abdominal pain that started last week. He describes it as sharp, constant, intensity 5/10, no radiation, Brea identify exacerbating factors. Also complaining of chest pain in the epigastric area, intermittent every 30 minutes, intensity 5/10, no radiation. Admits to nausea and vomiting, no shortness of breath, diaphoresis or palpitation. He was seen at [facility] for these symptoms, he can't Recall test what was done Review of systems Constitutional: no weight loss, chills, fever Ears, eyes, nose, mouth and throat: no nasal congestion, no nasal discharge, no sinus pressure, no vision change, no red eye. Neck: No neck pain or rigidity. Cardiovascular: no palpitations, +chest pain Respiratory: no cough, shortness of breath Gastrointestinal: no hematochezia Genitourinary : no frequency , no hematuria Musculoskeletal: no joint swelling or muscle ache Integumentary: no rash, no pruritis Neurological: no parathesias, no focal weakness Endocrine: no cold or heat intolerance, no polyuria or polydipsia Hematologic/Lymphatic: no easy bruising, no easy bleeding, no gland swelling Allergic/Immunologic: no urticaria, no angioedema. PAST MEDICAL HISTORY: Substance abuse PAST SURGICAL HISTORY: Hip and ankle SOCIAL HISTORY: 12 pack of beer a day, cocaine use, no tobacco FAMILY HISTORY: Hypertension Medications and Allergies Allergies Allergy/AdvReac Type Severity Reaction Status Date / Time No Known Allergies Allergy Verified 11/20/14 06:26 Home Medications Medication Instructions Recorded Confirmed Last Taken Type Aspirin EC [Aspirin Enteric Coated 81 mg PO QDAY #30 tablet. 01/01/17 Unknown Rx TAB] Ibuprofen [Motrin] 600 mg PO Q8H PRN #30 tablet 08/09/17 Unknown Rx Active Meds: Active Medications Folic Acid 1 mg/ Multivitamins /Minerals 10 ml/ Magnesium Sulfate 2 gm/ Sodium Chloride 1,014.2 mls @ 250 mls/hr IV ONCE ONE Stop: 10/08/18 03:26 Exam - Physical Exam Narrative exam: General Apperance: The patient lying in bed, breathing comfortable HEENT: Normocephalic, atraumatic. Pupils equally round and reactive to light, EOMI, no sclericterus or JVD or thyromegaly or nodule. , no carotid bruit, mucous membranes moist, no exudate or erythema Heart: S1-S2, regular is rhythm Lungs: Clear to auscultation bilaterally, breathing comfortable Abdomen: Positive bowel sounds, soft, nontender, nondistended, no organomegaly Extremities: No edema cyanosis clubbing Skin: no rash, nodule, warm and dry Neuro: cranial nerves 2-12 intact, speech is fluent, motor/sensory intact - Constitutional Vitals: Temp Pulse Resp BP Pulse Ox 97.5 F L 89 20 114/98 100 10/07/18 20:58 10/07/18 20:58 10/07/18 20:58 10/07/18 20:58 10/07/18 20:58 Results - Labs CBC & Chem 7: 10/07/18 21:11 10/07/18 21:11 Labs: Abnormal lab results 10/07/18 10/07/18 10/07/18 Range/Units 21:11 21:11 21:11 WBC 3.4 L (4.5-11.0) K/mm3 MCV 97 H (84-94) fl MCH 33 H (28-32) pg RDW 12.5 L (13.2-15.2) % Lymph % (Auto) 36.9 H (13.4-35.0) % [place] % (Auto) 8.0 H (0.0-7.3) % PT 12.1 L (12.2-14.9) Sec. INR 0.85 L (0.87-1.13) BUN 7 L (9-20) mg/dL Glucose 102 H (75-100) mg/dL AST 69 H (5-40) units/L Total Creatine Kinase (55-170) units/L Ur Specific [place] (1.003-1.030) Plasma/Serum Alcohol (0-0.07) % 10/07/18 10/07/18 10/07/18 Range/Units 21:11 21:11 Unknown WBC (4.5-11.0) K/mm3 MCV (84-94) fl MCH (28-32) pg RDW (13.2-15.2) % Lymph % (Auto) (13.4-35.0) % [place] % (Auto) (0.0-7.3) % PT (12.2-14.9) Sec. INR (0.87-1.13) BUN (9-20) mg/dL Glucose (75-100) mg/dL AST (5-40) units/L Total Creatine Kinase 189 H (55-170) units/L Ur Specific [place] 1.002 L (1.003-1.030) Plasma/Serum Alcohol 0.24 H (0-0.07) % - Imaging and Cardiology EKG: image reviewed Chest x-ray: report reviewed Assessment and Plan Assessment Abdominal pain Chest pain Substance abuse Plan Admit to medicine Check CAT scan of the abdomen and pelvis Check cardiac enzymes, stress test Percocet, DVT prophylaxis CIWA protocol
--- NOTE | 2018-10-08 01:55 | Cat Scan Report ---
FINAL REPORT EXAM: CT ABDOMEN PELVIS WO CON HISTORY: abd/flank pain TECHNIQUE: Helical CT scan through the abdomen and pelvis without contrast. Images are reconstructed in the sagittal and coronal planes. PRIORS: None. FINDINGS: Solid organ and bowel evaluation is limited without intravenous contrast. Bowel evaluation is limited without oral contrast. The lung bases are clear. There is diffuse low-attenuation of the liver consistent with fatty infiltration. Otherwise, the live r appears normal. The gallbladder, pancreas, spleen and adrenal glands appear grossly normal. The kidneys appear grossly normal. There is a 1 mm nonobstructing stone in the upper pole of the righ t kidney. There is no hydronephrosis or ureterolithiasis. The pelvic organs appear grossly normal. The stomach appears grossly within normal limits. There are no abnormally dilated loops of bowel or acute inflammatory changes. A normal-appearing appe ndix is identified. The abdominal aorta has a normal diameter. There is been previous osseous metallic fusion of the left hip. IMPRESSION: 1 mm nonobstructing stone in the upper pole of the right kidney. No hydronephrosis or ureterolithiasi s. No acute findings in the abdomen/pelvis
[2018-10-08] MEDS ORDERED: ZOFRAN ONE (02:01)
[2018-10-08] MEDS ORDERED: NACL 0.9% 1000 ML 1,000 ML ONE (02:01)
[2018-10-08] MEDS ORDERED: ASPIRIN ONE (02:01)
[2018-10-08 02:13] LABS: Creatine Kinase MB 1.5 ng/mL (0.0-4.0)
[2018-10-08] MEDS ORDERED: VITAMIN B-1 ONE (02:13)
[2018-10-08] MEDS ORDERED: MORPHINE ONE (02:18)
[2018-10-08] MEDS ORDERED: NITRO-BID 2% TP ONE (02:18)
[2018-10-08 06:41] LABS: Basophils % (Auto) 0.6 % (0.0-1.8); Eosinophils # (Auto) 0.1 K/mm3 (0.0-0.4); Eosinophils % (Auto) 2.2 % (0.0-4.3); Hematocrit 33.5 % (35.5-45.6); Hemoglobin 11.4 gm/dl (11.8-15.2); Lymphocytes # (Auto) 1.6 K/mm3 (1.2-5.4); Lymphocytes % (Auto) 50.8 % (13.4-35.0); Mean Corpuscular HGB Conc 34 % (32-34); Mean Corpuscular Volume 98 fl (84-94); Monocytes # (Auto) 0.3 K/mm3 (0.0-0.8); Monocytes % (Auto) 9.6 % (0.0-7.3); Platelet Count 155 K/mm3 (140-440); Red Blood Count 3.42 M/mm3 (3.65-5.03); Red Cell Distribution Width 12.2 % (13.2-15.2)
[2018-10-08 06:52] LABS: Creatine Kinase MB 1.5 ng/mL (0.0-4.0)
[2018-10-08 06:58] LABS: BUN/Creatinine Ratio 9; Blood Urea Nitrogen 6 mg/dL (9-20); Calcium 7.7 mg/dL (8.4-10.2); Hemolysis Index 6
[2018-10-08] MEDS ORDERED: LEXISCAN IV ONE ×2 (09:26→09:27)
[2018-10-08] MEDS: LOVENOX SUB-Q SCH (11:30)
[2018-10-08] MEDS: SODIUM CHLORIDE FLUSH SYRINGE 10 ML IV SCH ×2 (11:31→21:43)
--- NOTE | 2018-10-08 12:04 | Treadmill Report ---
NUCLEAR MYOCARDIAL PERFUSION STUDY READING PHYSICIAN: Sherwin Lobo M.D. REASON FOR STUDY: Chest pain IMAGING PROTOCOL: The patient received 10 mCi of Technetium 99m Tetrofosmin for resting image and 28 mCi of Technetium 99m Tetrofosmin for stress imaging. The imaging for the whole procedure was completed 30-90 minutes following the initial injection of Technetium 99m Tetrofosmin. The SPECT imaging in the 180 degree arc was performed in the right anterior oblique projection. Computerized reconstruction of the images was performed for analysis. IMAGING RESULTS: Normal cavity size from stress to rest. Normal distribution of radionuclide in the anterior, inferior, septal, and apical regions. Gated SPECT, EF 56% with no wall motion abnormality. The patient infused Lexiscan with no EKG changes. SUMMARY: 1. Negative Lexiscan EKG. 2. Normal rest and stress myocardial perfusion scan. No significant stress ischemia. No wall motion abnormality. Gated SPECT, EF 56%. JOB# [id number] JANA/TINO
--- NOTE | 2018-10-08 15:32 | Discharge Summary ---
Providers - Providers Date of Admission: 10/08/18 01:10 Date of discharge: 10/09/18 Attending physician: SILVIA LACKEY Primary care physician: ELO WARNER Hospitalization Condition: Fair Pertinent studies: CXR CT abdoemn/pelvis exercise Stress test Hospital course: 48-year-old man history of substance abuse comes emergency room with complaints of left flank and mid abdominal pain that started last week. He describes it as sharp, constant, intensity 5/10, no radiation, Brea identify exacerbating factors. Also complained of chest pain in the epigastric area, intermittent every 30 minutes, intensity 5/10, no radiation. Also c/o nausea and vomiting, no shortness of breath, diaphoresis or palpitation. He was seen at [facility] for these symptoms, he can't Recall test what was done. His UDS was positive for cocaine, serum EtOH level was elevated. CXR no infiltrtaes, CT abdomen/pelvis w/o acute finding, except 1 mm nonobstructing stone right kidney upper pole. Lexiscan was normal. Placed on CIWA protocol. His symptom improved. Patient was then discharged home in stable condition. Discharge diagnosis: Abdominal pain, resolved, likely from GERD Chest pain, likely cocaine induced vasospasm Substance abuse, counseled Alcohol abuse, managed with CIWA protocol Disposition: DC-01 TO HOME OR SELFCARE Time spent for discharge: 34 minutes Core Measure Documentation - Palliative Care Palliative Care/ Comfort Measures: Not Applicable - Core Measures Any of the following diagnoses?: none Exam - Constitutional Vitals: Temp Pulse Resp BP Pulse Ox 98.2 F 86 16 139/90 98 10/08/18 07:51 10/08/18 07:51 10/08/18 07:51 10/08/18 10:02 10/08/18 11:24 General appearance: Present: no acute distress, well-nourished - EENT Eyes: Present: PERRL ENT: hearing intact, clear oral mucosa - Neck Neck: Present: supple, normal ROM - Respiratory Respiratory effort: normal Respiratory: bilateral: CTA - Cardiovascular Heart Sounds: Present: S1 & S2. Absent: rub, click - Extremities Extremities: pulses symmetrical, No edema Peripheral Pulses: within normal limits - Abdominal General gastrointestinal: Present: soft, non-tender, non-distended, normal bowel sounds - Integumentary Integumentary: Present: clear, warm, dry - Musculoskeletal Musculoskeletal: gait normal, strength equal bilaterally - Psychiatric Psychiatric: appropriate mood/affect, intact judgment & insight - Neurologic Neurologic: CNII-XII intact, moves all extremities Plan Activity: advance as tolerated Weight Bearing Status: Weight Bear as Tolerated Diet: low fat Follow up with: ELO WARNER MD [Primary Care Provider] - 3-5 Days Prescriptions: chlordiazePOXIDE [Librium] 25 mg PO Q12HR #4 capsule Folic Acid [Folvite] 1 mg PO QDAY #30 tablet Pantoprazole [Protonix] 40 mg PO QDAY #30 tablet Thiamine [Vitamin B-1] 100 mg PO QDAY #30 tablet
--- NOTE | 2018-10-08 15:33 | Progress Note ---
Assessment and Plan Abdominal pain, resolved Chest pain, likely cocaine induced vasospasm Substance abuse, counseled Alcohol intoxication, on CIWa protocol - cont supportive care - negative stress test, cont CIWA protocol with librium and ativan as needed - regular diet, DVT Px Subjective Date of service: 10/08/18 Interval history: Pt seen and examined c/o hand tremor, tolerating diet s/p stress test today Objective - Constitutional Vitals: Vital Signs - 12hr 10/08/18 10/08/18 10/08/18 07:51 09:32 09:50 Temperature 98.2 F Pulse Rate 86 Respiratory 16 Rate Blood Pressure 122/82 134/86 139/95 O2 Sat by Pulse 98 Oximetry 10/08/18 10/08/18 10/08/18 09:51 09:52 09:53 Temperature Pulse Rate Respiratory Rate Blood Pressure 142/98 128/92 132/89 O2 Sat by Pulse Oximetry 10/08/18 10/08/18 10/08/18 09:54 09:55 10:02 Temperature Pulse Rate Respiratory Rate Blood Pressure 132/87 133/78 139/90 O2 Sat by Pulse Oximetry 10/08/18 11:24 Temperature Pulse Rate Respiratory Rate Blood Pressure O2 Sat by Pulse 98 Oximetry General appearance: Present: no acute distress - EENT Eyes: PERRL, EOM intact ENT: hearing intact, clear oral mucosa Ears: bilateral: normal - Neck Neck: supple, normal ROM - Respiratory Respiratory effort: normal Respiratory: bilateral: CTA - Cardiovascular Rhythm: regular Heart Sounds: Present: S1 & S2. Absent: gallop, rub Extremities: pulses intact, No edema, normal color, Full ROM - Gastrointestinal General gastrointestinal: Present: soft, non-tender, non-distended, normal bowel sounds - Integumentary Integumentary: clear, warm, dry - Musculoskeletal Musculoskeletal: 1, strength equal bilaterally - Neurologic Neurologic: moves all extremities, other (+ hand tremor) - Psychiatric Psychiatric: memory intact, appropriate mood/affect, intact judgment & insight - Labs CBC & Chem 7: 10/08/18 05:44 10/08/18 05:44 Labs: Abnormal lab results 10/07/18 10/07/18 10/07/18 Range/Units 21:11 21:11 21:11 WBC 3.4 L (4.5-11.0) K/mm3 RBC (3.65-5.03) M/mm3 Hgb (11.8-15.2) gm/dl Hct (35.5-45.6) % MCV 97 H (84-94) fl MCH 33 H (28-32) pg RDW 12.5 L (13.2-15.2) % Lymph % (Auto) 36.9 H (13.4-35.0) % [place] % (Auto) 8.0 H (0.0-7.3) % Seg Neutrophils % (40.0-70.0) % Seg Neutrophils # (1.8-7.7) K/mm3 PT 12.1 L (12.2-14.9) Sec. INR 0.85 L (0.87-1.13) Carbon Dioxide (22-30) mmol/L BUN 7 L (9-20) mg/dL Creatinine (0.8-1.5) mg/dL Glucose 102 H (75-100) mg/dL Calcium (8.4-10.2) mg/dL AST 69 H (5-40) units/L Total Creatine Kinase (55-170) units/L Ur Specific [place] (1.003-1.030) Plasma/Serum Alcohol (0-0.07) % 10/07/18 10/07/18 10/07/18 Range/Units 21:11 21:11 Unknown WBC (4.5-11.0) K/mm3 RBC (3.65-5.03) M/mm3 Hgb (11.8-15.2) gm/dl Hct (35.5-45.6) % MCV (84-94) fl MCH (28-32) pg RDW (13.2-15.2) % Lymph % (Auto) (13.4-35.0) % [place] % (Auto) (0.0-7.3) % Seg Neutrophils % (40.0-70.0) % Seg Neutrophils # (1.8-7.7) K/mm3 PT (12.2-14.9) Sec. INR (0.87-1.13) Carbon Dioxide (22-30) mmol/L BUN (9-20) mg/dL Creatinine (0.8-1.5) mg/dL Glucose (75-100) mg/dL Calcium (8.4-10.2) mg/dL AST (5-40) units/L Total Creatine Kinase 189 H (55-170) units/L Ur Specific [place] 1.002 L (1.003-1.030) Plasma/Serum Alcohol 0.24 H (0-0.07) % 10/08/18 10/08/18 10/08/18 Range/Units 01:23 05:44 05:44 WBC 3.1 L (4.5-11.0) K/mm3 RBC 3.42 L (3.65-5.03) M/mm3 Hgb 11.4 L (11.8-15.2) gm/dl Hct 33.5 L (35.5-45.6) % MCV 98 H (84-94) fl MCH 33 H (28-32) pg RDW 12.2 L (13.2-15.2) % Lymph % (Auto) 50.8 H (13.4-35.0) % [place] % (Auto) 9.6 H (0.0-7.3) % Seg Neutrophils % 36.8 L (40.0-70.0) % Seg Neutrophils # 1.1 L (1.8-7.7) K/mm3 PT (12.2-14.9) Sec. INR (0.87-1.13) Carbon Dioxide 19 L (22-30) mmol/L BUN 6 L (9-20) mg/dL Creatinine 0.7 L (0.8-1.5) mg/dL Glucose 62 L (75-100) mg/dL Calcium 7.7 L (8.4-10.2) mg/dL AST (5-40) units/L Total Creatine Kinase 178 H (55-170) units/L Ur Specific [place] (1.003-1.030) Plasma/Serum Alcohol (0-0.07) %
[2018-10-08] MEDS ORDERED: VITAMIN B-1 100 MG in NACL 0.9% 50 ML IV SCH (18:00)
[2018-10-08] MEDS: FOLVITE PO SCH (18:43)
[2018-10-08] MEDS: LIBRIUM PO SCH ×2 (18:43→21:43)
[2018-10-08] MEDS: VITAMIN B-1 PO SCH (21:43)
[2018-10-09] MEDS: LIBRIUM PO SCH ×2 (06:14→13:59)
[2018-10-09] MEDS: VITAMIN B-1 PO SCH (09:31)
[2018-10-09] MEDS: LOVENOX SUB-Q SCH (09:31)
[2018-10-09] MEDS: FOLVITE PO SCH (09:31)
[2018-10-09] MEDS: SODIUM CHLORIDE FLUSH SYRINGE 10 ML IV SCH (09:32)
[2018-10-09 11:39] VITALS: BP 114/79
== END 2018-10-09 15:48 | disposition home or self-care (01) | DRG 918 ==
LOC: ED 20:49 → 4A 10-08 01:10
PROVIDERS: ADMIT Internal Medicine; ATTEND Internal Medicine
DX: T40.5X1A Poisoning by cocaine, accidental (unintentional), initial encounter (principal); K21.9 Gastro-esophageal reflux disease without esophagitis; I10 Essential (primary) hypertension; E11.9 Type 2 diabetes mellitus without complications; F14.10 Cocaine abuse, uncomplicated; Y90.9 Presence of alcohol in blood, level not specified; F10.129 Alcohol abuse with intoxication, unspecified; Z79.82 Long term (current) use of aspirin; Z79.899 Other long term (current) drug therapy; Z72.89 Other problems related to lifestyle; Z82.49 Family history of ischemic heart disease and other diseases of the circulatory system; Z71.51 Drug abuse counseling and surveillance of drug abuser; Y92.098 Other place in other non-institutional residence as the place of occurrence of the external cause; Z79.84 Long term (current) use of oral hypoglycemic drugs
CPT/HCPCS: 36415; 71045; 74176; 78452; 80048; 80053; 80307; 80320; 81001; 82550; 82553; 83690; 83735; 84484; 85025; 85610; 85730; 93005; 93010; 93017; G0378; A9502; G0480; J1650; J2270; J2405; J2785; J3411; J7030

== ENCOUNTER 2019-06-26 01:26 | Emergency (ER) | payer SELFPAY ==
[2019-06-26 01:33] VITALS: BP 136/97
[2019-06-26] MEDS ORDERED: predniSONE 20 MG TAB PO ONE (04:00)
[2019-06-26] MEDS ORDERED: IBUPROFEN 600 MG TAB PO ONE (04:00)
[2019-06-26] MEDS ORDERED: ACETAMINOPHEN 500 MG TAB PO ONE (04:00)
--- NOTE | 2019-06-26 05:08 | Emergency Department Report ---
ED Extremity Problem HPI - General Chief complaint: Extremity Injury, Lower Stated complaint: RIGHT LEG PAIN Source: patient, EMS Mode of arrival: Ambulatory Limitations: No Limitations - History of Present Illness Initial comments: Patient is a 48-year-old -[place] male with a history of chronic right ankle pain from an old injury presents to the ED with acute exacerbation of right ankle pain for the last 1 week, worse in the last 2 days. Patient denies fall, traumatic injury, dizziness, fever, chills, nausea, vomiting, numbness and tingling or weakness of right leg low back pain. MD Complaint: extremity pain (right ankle pain, chronic), joint paint (right ankle pain) -: Gradual, week(s) (1) Location: right, lower extremity (ankle) History of Same: Yes -: Yes arthralgia, No fever, No associated dyspnea, No associated chest pain Severity scale (0 -10): 5 Quality: aching, sharp, constant Consistency: constant Improves with: nothing Worsens with: weight bearing, walking, exertion, palpation Associated Symptoms: denies other symptoms, arthralgias. denies: chest pain, shortness of breath, fever, myalgias, rash - Related Data Previous Rx's Medication Instructions Recorded Last Taken Type Folic Acid [Folvite] 1 mg PO QDAY #30 tablet 10/09/18 Unknown Rx Pantoprazole [Protonix] 40 mg PO QDAY #30 tablet 10/09/18 Unknown Rx Thiamine [Vitamin B-1] 100 mg PO QDAY #30 tablet 10/09/18 Unknown Rx chlordiazePOXIDE [Librium] 25 mg PO Q12HR #4 capsule 10/09/18 Unknown Rx Cyclobenzaprine [Flexeril] 10 mg PO Q8H PRN #12 tablet 06/26/19 Unknown Rx Naproxen 500 mg PO Q12H PRN #20 tablet 06/26/19 Unknown Rx Allergies Allergy/AdvReac Type Severity Reaction Status Date / Time No Known Allergies Allergy Verified 11/20/14 06:26 ED Review of Systems ROS: Stated complaint: RIGHT LEG PAIN Other details as noted in HPI Constitutional: denies: chills, fever Eyes: denies: eye pain, eye discharge, vision change ENT: denies: ear pain, throat pain Respiratory: denies: cough, shortness of breath, wheezing Cardiovascular: denies: chest pain, palpitations Endocrine: no symptoms reported Gastrointestinal: denies: abdominal pain, nausea, diarrhea Genitourinary: denies: urgency, dysuria Musculoskeletal: arthralgia (right ankle pain). denies: back pain, joint swelling, myalgia Skin: denies: rash, lesions Neurological: denies: headache, weakness, paresthesias Psychiatric: denies: anxiety, depression Hematological/Lymphatic: denies: easy bleeding, easy bruising ED Past Medical Hx - Past Medical History Previous Medical History?: Yes Hx Hypertension: Yes Hx Diabetes: Yes Hx Renal Disease: Yes Additional medical history: Cocaine use - Surgical History Past Surgical History?: Yes Additional Surgical History: L hip ortho "Pins" - Social History Smoking Status: Never Smoker Substance Use Type: Alcohol - Medications Home Medications: Home Medications Medication Instructions Recorded Confirmed Last Taken Type Folic Acid [Folvite] 1 mg PO QDAY #30 tablet 10/09/18 Unknown Rx Pantoprazole [Protonix] 40 mg PO QDAY #30 tablet 10/09/18 Unknown Rx Thiamine [Vitamin B-1] 100 mg PO QDAY #30 tablet 10/09/18 Unknown Rx chlordiazePOXIDE [Librium] 25 mg PO Q12HR #4 capsule 10/09/18 Unknown Rx Cyclobenzaprine [Flexeril] 10 mg PO Q8H PRN #12 tablet 06/26/19 Unknown Rx Naproxen 500 mg PO Q12H PRN #20 tablet 06/26/19 Unknown Rx ED Physical Exam - General Limitations: No Limitations General appearance: alert, in no apparent distress - Head Head exam: Present: atraumatic, normocephalic, normal inspection - Eye Eye exam: Present: normal appearance, PERRL, EOMI Pupils: Present: normal accommodation - ENT ENT exam: Present: normal exam, normal orophraynx, mucous membranes moist, TM's normal bilaterally, normal external ear exam - Neck Neck exam: Present: normal inspection, full ROM - Respiratory Respiratory exam: Present: normal lung sounds bilaterally. Absent: respiratory distress, wheezes, chest wall tenderness, decreased breath sounds, prolonged expiratory - Cardiovascular Cardiovascular Exam: Present: regular rate, normal rhythm, normal heart sounds. Absent: systolic murmur, diastolic murmur, rubs, gallop - GI/Abdominal GI/Abdominal exam: Present: soft, normal bowel sounds. Absent: tenderness, hyperactive bowel sounds - Extremities Exam Extremities exam: Present: normal inspection, full ROM, tenderness (Palpable right ankle tenderness), normal capillary refill - Back Exam Back exam: Present: normal inspection, full ROM. Absent: muscle spasm, paraspinal tenderness - Neurological Exam Neurological exam: Present: alert, oriented X3, CN II-XII intact, normal gait, reflexes normal - Psychiatric Psychiatric exam: Present: normal affect, normal mood - Skin Skin exam: Present: warm, dry, intact, normal color. Absent: rash ED Course Vital Signs 06/26/19 06/26/19 06/26/19 01:29 04:35 04:53 Temperature 97.9 F Pulse Rate 88 Respiratory 18 16 16 Rate Blood Pressure 136/97 O2 Sat by Pulse 97 Oximetry ED Medical Decision Making - Medical Decision Making Patient is a 48-year-old male with history of chronic right ankle pain from an old injury presents to the ED with acute exacerbation of his chronic right ankle pain for one week, worse in the last 2 days. In the ED, patient is alert and oriented 3 in no acute distress. Patient was treated for pain in the ED and on reevaluation, patient's pain is well controlled in the ED, patient is fully ambulatory in the ED with no difficulties. Patient was discharged home on pain medications and advised to follow-up with his primary care physician at [facility] in 7-10 days for reevaluation or return to the ED immediately if symptoms get worse. - Differential Diagnosis Chronic right ankle pain; Chronic osteoathritis; Muscle strain Critical care attestation.: If time is entered above; I have spent that time in minutes in the direct care of this critically ill patient, excluding procedure time. ED Disposition Clinical Impression: Chronic pain of right ankle, Chronic osteoarthritis Disposition: DC-01 TO HOME OR SELFCARE Is pt being admited?: No Does the pt Need Aspirin: No Condition: Stable Instructions: Arthralgia (ED), Osteoarthritis (ED) Additional Instructions: Take pain medications with food, drink plenty of fluids and follow-up with her primary care physician in 5-7 days for reevaluation. Return to the ED immediately if symptoms get worse. Prescriptions: Cyclobenzaprine [Flexeril] 10 mg PO Q8H PRN #12 tablet PRN Reason: Muscle Spasm Naproxen 500 mg PO Q12H PRN #20 tablet PRN Reason: Pain , Severe (7-10) Referrals: [facility] [Outside] - 3-5 Days Time of Disposition: 05:10 Print Language: VIETNAMESE
== END 2019-06-26 06:05 | disposition home or self-care (01) ==
LOC: ED 01:26
DX: M19.071 Primary osteoarthritis, right ankle and foot (principal); G89.29 Other chronic pain; I10 Essential (primary) hypertension; E11.9 Type 2 diabetes mellitus without complications; Z79.899 Other long term (current) drug therapy
CPT/HCPCS: 99283; J7512

== ENCOUNTER 2019-07-23 20:11 | Emergency (ER) | payer SELFPAY ==
[2019-07-23 20:19] VITALS: BP 116/88
--- NOTE | 2019-07-23 20:42 | Emergency Department Report ---
Chief Complaint: Extremity Problem,Nontraumatic Stated Complaint: LEG PAIN Time Seen by Provider: 07/23/19 20:37 - HPI History of Present Illness: pt is ambulatory without difficulty pt presents with chronic right ankle pain that began bothering him again a week ago states he had ankle surgery a year ago no fall or injury PMHx chronic hip pain no allergies to meds he has not followed up with an orthopedic doctor or a primary care doctor pt was evaluated last month in the ED for the same complaint on exam: Well-healed surgical scar present to the right ankle No deformity, full range of motion of the right ankle, no obvious edema, no joint laxity, no bony TTP, neurovascularly intact Medical screening exam performed pt is presenting with chronic right ankle pain will refer patient back to his orthopedic doctor or primary care doctor No medical emergency present at this time - Exam Vital Signs: Vital Signs 07/23/19 20:16 Temperature 98.2 F Respiratory 18 Rate Blood Pressure 116/88 MSE screening note: Focused history and physical exam performed. ED Disposition for MSE Clinical Impression: Chronic pain of right ankle Disposition: - MED SCREENING EXAM-LEFT Condition: Stable Instructions: Arthralgia (ED) Additional Instructions: please follow up with your orthopedic doctor. please follow up with a primary care doctor. return to the emergency room for any new or worsening symptoms . 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
== END 2019-07-23 20:45 | disposition left against medical advice (07) ==
LOC: ED 20:11
DX: M25.571 Pain in right ankle and joints of right foot (principal); G89.29 Other chronic pain